=== PATIENT | female | born 1965 | race African-American/Black ===

== ENCOUNTER 2016-11-01 11:02 | Emergency (ER) | payer SELFPAY ==
[2016-11-01] MEDS ORDERED: Ondansetron ODT 4 MG TAB ONE (11:51)
[2016-11-01] MEDS ORDERED: Naproxen 500 MG TAB ONE (11:51)
[2016-11-01] MEDS ORDERED: HYDROcodone/Acetaminophen 10/325 mg Tablet ONE (12:34)
[2016-11-01] MEDS ORDERED: Diazepam 5 MG TAB ONE (12:34)
--- NOTE | 2016-11-01 13:18 | RAD ---
AP VIEW PELVIS: Date: 11/01/16 HISTORY: Pelvic pain. FINDINGS: AP view pelvis obtained. The pelvis is unremarkable. No evidence of pelvic fractures, subluxations, or bony lesions seen. IMPRESSION: Unremarkable AP view pelvis. POS: [facility]
--- NOTE | 2016-11-01 13:21 | RAD ---
3 VIEWS LUMBAR SPINE: Date: 11/01/16 HISTORY: Back pain for 1 week. FINDINGS: AP, lateral, and coned-down views lumbar spine obtained. Five non-rib bearing lumbar vertebra demons trate no evidence of lumbar spine fractures, subluxations, or bony lesions. IMPRESSION: Normal 3 views lumbar spine. POS: [facility]
== END 2016-11-01 12:35 | disposition home or self-care (01) ==
LOC: MADERS 11:02
DX: M54.42 Lumbago with sciatica, left side (principal); M54.41 Lumbago with sciatica, right side; I10 Essential (primary) hypertension; J45.909 Unspecified asthma, uncomplicated; Z79.899 Other long term (current) drug therapy
CPT/HCPCS: 72100; 72170; Q0162

== ENCOUNTER 2017-03-02 06:22 | Emergency (ER) | payer SELFPAY ==
[2017-03-02] MEDS ORDERED: Dexamethasone 10 MG/ML VIAL ONE (06:48)
[2017-03-02] MEDS ORDERED: diphenhydrAMINE 50 MG/ML VIAL ONE (07:00)
[2017-03-02 07:22] LABS: ALT (SGPT) 35 U/L (8-55); AST (SGOT) 37 U/L (5-34); Albumin 4.2 g/dL (3.5-5.0); Anion Gap 18 mmol/L (10-20); BUN (Urea Nitrogen) 13 mg/dL (7.0-18.7); Bilirubin, Total 0.2 mg/dL (0.2-1.2); Calc. Creatinine Clearance 0 mL/min (70-130); Calcium 9.5 mg/dL (7.8-10.44); Carbon Dioxide 23 mmol/L (22-29); Chloride 108 mmol/L (98-107); Estimated GFR-MDRD Greater than 90; Globulin 4.2 g/dL (2.4-3.5); Glucose 108 mg/dL (70-105); Potassium 3.9 mmol/L (3.5-5.1); Protein, Total 8.4 g/dL (6.0-8.3); Sodium 145 mmol/L (136-145)
[2017-03-02 07:27] LABS: CKMB 2.5 ng/mL (0-6.6); Troponin I Less than 0.010 ng/mL (< 0.028)
[2017-03-02 07:40] LABS: PTT 34.9 SEC (22.9-36.1); Prothrombin Time 12.9 SEC (12.0-14.7)
[2017-03-02 07:42] LABS: Hemoglobin 14.1 g/dL (12.0-16.0); Mean Corpuscular Volume 89.6 fL (81.0-99.0); Red Blood Cell (RBC) Count 4.82 mill/uL (4.20-5.40); White Blood Cell (WBC) Count 10.7 thou/uL (4.8-10.8)
[2017-03-02 07:43] LABS: Mean Corpuscular HGB CONC 32.7 g/dL (32.0-36.0); Mean Corpuscular Hemoglobin 29.3 pg (27.0-31.0)
[2017-03-02 07:44] LABS: #Basophils 0.3 thou/uL (0.0-0.2); #Eosinphils 0.1 thou/uL (0.0-0.7); #Lymphocytes 2.4 thou/uL (1.20-3.40); %Basophils 2.7 % (0.0-1.0); %Eosinophils 0.5 % (0.0-10.0); %Lymphocytes 22.1 % (21.0-51.0); %Monocytes 9.3 % (0.0-10.0); %Neutrophils 65.4 % (42.0-75.0); Mean Platelet Volume 8.2 fL (7.4-10.4); Platelet Count 278 thou/uL (130-400)
[2017-03-02] MEDS ORDERED: Lorazepam 2 MG/ML VIAL ONE (07:44)
[2017-03-02 07:45] LABS: Alkaline Phosphatase 74 U/L (40-150)
--- NOTE | 2017-03-02 08:03 | RAD ---
TWO VIEWS OF THE NECK: DATE: 03/02/17. COMPARISON: 08/20/12. HISTORY: Shortness of breath, dyspnea. FINDINGS: Frontal and lateral imaging of the neck demonstrates no significant mass effect on the tracheal air c olumn on frontal or lateral imaging. No radiopaque foreign body is seen. No prevertebral soft tissu e abnormality. IMPRESSION: No acute findings. POS: [facility]
== END 2017-03-02 08:25 | disposition short-term general hospital (02) ==
LOC: MADERS 06:22
DX: R05 Cough (principal); R06.02 Shortness of breath; R07.9 Chest pain, unspecified; I10 Essential (primary) hypertension; J45.909 Unspecified asthma, uncomplicated; Z79.899 Other long term (current) drug therapy
CPT/HCPCS: 70360; 71010; 80053; 82553; 83735; 83880; 84484; 85025; 85379; 85610; 85730; 96365; 96375; J1100; J1200; J1956; J2060

== ENCOUNTER 2017-12-14 09:07 | Emergency (ER) | payer SELFPAY ==
[~2017-12-14 09:07] MED LIST: Sodium Chloride 0.9% 1,000 ML BAG ONE
[2017-12-14] MEDS ORDERED: Ondansetron HCl/PF 4 MG/2 ML Vial ONE (09:32)
[2017-12-14 09:56] LABS: #Basophils 0.1 thou/uL (0.0-0.2); #Eosinphils 0.1 thou/uL (0.0-0.7); #Lymphocytes 1.5 thou/uL (1.20-3.40); #Monocytes 0.6 thou/uL (0.11-0.59); #Neutrophils 4.6 thou/uL (1.40-6.50); %Basophils 2.2 % (0.0-1.0); %Eosinophils 1.1 % (0.0-10.0); %Lymphocytes 21.5 % (21.0-51.0); %Monocytes 8.4 % (0.0-10.0); %Neutrophils 66.8 % (42.0-75.0); Hemoglobin 13.3 g/dL (12.0-16.0); Mean Corpuscular HGB CONC 32.8 g/dL (32.0-36.0); Mean Corpuscular Hemoglobin 28.4 pg (27.0-31.0); Mean Corpuscular Volume 86.3 fL (78.0-98.0); Mean Platelet Volume 7.8 fL (7.4-10.4); Platelet Count 313 thou/uL (130-400); RBC Distribution Width 11.5 % (11.5-14.5); Red Blood Cell (RBC) Count 4.71 mill/uL (4.20-5.40); White Blood Cell (WBC) Count 6.8 thou/uL (4.8-10.8)
[2017-12-14 10:10] LABS: ALT (SGPT) 32 U/L (8-55); AST (SGOT) 26 U/L (5-34); Albumin 4.4 g/dL (3.5-5.0); Alkaline Phosphatase 64 U/L (40-150); Anion Gap 14 mmol/L (10-20); BUN (Urea Nitrogen) 15 mg/dL (9.8-20.1); Bilirubin, Total 0.2 mg/dL (0.2-1.2); Calc. Creatinine Clearance 0 mL/min (70-130); Carbon Dioxide 24 mmol/L (22-29); Chloride 104 mmol/L (98-107); Estimated GFR-MDRD Greater than 90; Globulin 3.8 g/dL (2.4-3.5); Glucose 96 mg/dL (70-105); Lipase 24 U/L (8-78); Potassium 3.9 mmol/L (3.5-5.1); Protein, Total 8.2 g/dL (6.0-8.3); Sodium 138 mmol/L (136-145)
[2017-12-14 11:02] LABS: Bilirubin Negative (Negative); Blood, Urine Negative (Negative); Clarity Clear (Clear); Glucose, Urine (Dipstick) Negative (Negative); Leukocyte Negative (Negative); Nitrite Negative (Negative); Protein, Urine (Dipstick) Negative (Neg-Trace); Specific Gravity, Urine 1.008 (1.002-1.036); Urobilinogen 0.2 mg/dL (0.2-1.0)
== END 2017-12-14 11:23 | disposition home or self-care (01) ==
LOC: MADERS 09:07
DX: K52.9 Noninfective gastroenteritis and colitis, unspecified (principal); I10 Essential (primary) hypertension; J45.909 Unspecified asthma, uncomplicated; Z79.899 Other long term (current) drug therapy
CPT/HCPCS: 80053; 81003; 83690; 84484; 85025; 93005; 96374; J2405; J7050

== ENCOUNTER 2018-04-21 07:55 | Emergency (ER) | payer SELFPAY ==
[2018-04-21] MEDS ORDERED: Loperamide HCl 2 MG CAP ONE (09:20)
[2018-04-21] MEDS ORDERED: Sodium Chloride 0.9% 1,000 ML ONE (09:20)
[2018-04-21] MEDS ORDERED: Metoclopramide HCl 10 MG/2 ML VIAL ONE (09:20)
[2018-04-21] MEDS ORDERED: Ondansetron PF 4 MG/2 ML Vial ONE (09:20)
[2018-04-21 09:33] LABS: BHCG - Serum Negative (NEGATIVE); Pregs Control Background? CLEAR/WHITE (CLR/WHITE); Pregs Control Bar Appear? YES (CONTROL BAR)
[2018-04-21 09:42] LABS: ALT (SGPT) 39 U/L (8-55); AST (SGOT) 32 U/L (5-34); Albumin 4.5 g/dL (3.5-5.0); Alkaline Phosphatase 69 U/L (40-150); Anion Gap 15 mmol/L (10-20); BUN (Urea Nitrogen) 15 mg/dL (9.8-20.1); Bilirubin, Total 0.4 mg/dL (0.2-1.2); Calc. Creatinine Clearance 0 mL/min (70-130); Calcium 10.2 mg/dL (7.8-10.44); Carbon Dioxide 26 mmol/L (22-29); Chloride 103 mmol/L (98-107); Estimated GFR-MDRD Greater than 90; Globulin 3.9 g/dL (2.4-3.5); Glucose 99 mg/dL (70-105); Potassium 3.9 mmol/L (3.5-5.1); Protein, Total 8.4 g/dL (6.0-8.3); Sodium 140 mmol/L (136-145)
[2018-04-21 09:58] LABS: Hemoglobin 14.5 g/dL (12.0-16.0); Lymphocytes 14 % (21-51); MDiff Complete? YES; Mean Corpuscular Hemoglobin 27.1 pg (27.0-31.0); Mean Corpuscular Volume 87.3 fL (78.0-98.0); Mean Platelet Volume 7.8 fL (7.4-10.4); Monocytes 4 % (0-10); Neutrophil 82 % (42-75); Platelet Count 269 thou/uL (130-400); RBC Distribution Width 11.8 % (11.5-14.5); Red Blood Cell (RBC) Count 5.43 mill/uL (4.20-5.40); White Blood Cell (WBC) Count 7.9 thou/uL (4.8-10.8)
== END 2018-04-21 11:15 | disposition home or self-care (01) ==
LOC: MADERS 07:55
DX: R11.2 Nausea with vomiting, unspecified (principal); R19.7 Diarrhea, unspecified; I10 Essential (primary) hypertension; J45.909 Unspecified asthma, uncomplicated; Z79.899 Other long term (current) drug therapy; Z79.51 Long term (current) use of inhaled steroids
CPT/HCPCS: 80053; 84703; 85025; 96361; 96374; 96375; J2405; J2765; J7050

== ENCOUNTER 2019-11-10 05:53 | Emergency (ER) | payer SELFPAY ==
[2019-11-10] MEDS ORDERED: EPINEPHrine 1 MG/ML AMP ONE (05:59)
[2019-11-10] MEDS ORDERED: Ketamine 50 MG/ML (10ML VIAL) ONE (06:02)
[2019-11-10] MEDS ORDERED: Rocuronium Bromide 10 MG/ML (10ML VIAL) ONE ×2 (06:03→07:11)
[2019-11-10] MEDS ORDERED: Propofol 1,000 MG/100 ML VIAL IV ONE ×2 (06:35→06:36)
[2019-11-10 06:55] LABS: ALT (SGPT) 36 U/L (8-55); AST (SGOT) 33 U/L (5-34); Albumin 4.5 g/dL (3.5-5.0); Alkaline Phosphatase 74 U/L (40-110); Anion Gap 17 mmol/L (10-20); BUN (Urea Nitrogen) 13 mg/dL (9.8-20.1); Bilirubin, Total Less than 0.2 mg/dL (0.2-1.2); CK (CPK) 145 U/L (29-168); Calc. Creatinine Clearance 0 mL/min (70-130); Calcium 9.8 mg/dL (7.8-10.44); Carbon Dioxide 25 mmol/L (22-29); Chloride 103 mmol/L (98-107); Estimated GFR-MDRD 86; Globulin 3.9 g/dL (2.4-3.5); Glucose 102 mg/dL (70-105); Potassium 3.5 mmol/L (3.5-5.1); Protein, Total 8.4 g/dL (6.0-8.3); Sodium 141 mmol/L (136-145)
[2019-11-10] MEDS ORDERED: methylPREDNISolone Sod Succ/PF 125 MG/2 ML VIAL ONE (06:59)
[2019-11-10] MEDS ORDERED: Sodium Chloride 0.9% 1,000 ML ONE (06:59)
[2019-11-10 07:04] LABS: Band 1 % (5-11); Eosinophils 1 % (0-10); Hemoglobin 13.8 g/dL (12.0-16.0); Lymphocytes 33 % (21-51); MDiff Complete? YES; Mean Corpuscular HGB CONC 31.2 g/dL (32.0-36.0); Mean Corpuscular Volume 86.5 fL (78.0-98.0); Mean Platelet Volume 7.6 fL (7.4-10.4); Microcytosis SLIGHT = 6-15 cells (100X) (0-5/hpf); Monocytes 13 % (0-10); Neutrophil 48 % (42-75); Platelet Count 279 thou/uL (130-400); Platelet Morphology Comment Appears Adequate; Reactive Lymphocytes 3 % (0-10); Reflex for Review?? YES; White Blood Cell (WBC) Count 6.7 thou/uL (4.8-10.8)
--- NOTE | 2019-11-10 07:31 | RAD ---
RADIOGRAPH CHEST 1 VIEW: Supine DATE: 11/10/2019 HISTORY: 54-year-old female with respiratory distress. Status post intubation. FINDINGS: There is no airspace density or pulmonary edema. The lateral costophrenic angles are sharp. Supine po sitioning makes this study insensitive for the detection of pneumothorax. Endotracheal tube distal tip is at the cervicothoracic junction, C7-T1 level, 8 cm superior to the miguel. IMPRESSION: 1. Endotracheal tube at cervical thoracic junction. 2. No acute pulmonary findings.
== END 2019-11-10 07:19 | disposition short-term general hospital (02) ==
LOC: MADERS 05:53
DX: T78.3XXA Angioneurotic edema, initial encounter (principal); J96.90 Respiratory failure, unspecified, unspecified whether with hypoxia or hypercapnia; I10 Essential (primary) hypertension; J45.909 Unspecified asthma, uncomplicated
CPT/HCPCS: 31500; 36415; 51702; 71045; 80053; 82550; 85025; 96365; 96372; 96375; J0171; J2704; J2930; J7050

== ENCOUNTER 2020-06-14 10:26 | Outpatient (CLI) | payer BC | END 2020-06-14 10:27 | disposition home or self-care (01) | LOC: MADRAD 10:26 | PROVIDERS: ATTEND Family Medicine | DX: R07.89 Other chest pain (principal); Z86.16 Personal history of COVID-19 | CPT/HCPCS: 71046 ==

== ENCOUNTER 2020-07-05 15:32 | Emergency (ER) | payer BC ==
[2020-07-05 16:18] LABS: #Basophils 0.1 thou/uL (0.0-0.2); #Monocytes 0.5 thou/uL (0.11-0.59); #Neutrophils 3.3 thou/uL (1.40-6.50); %Basophils 1.4 % (0.0-1.0); %Eosinophils 0.4 % (0.0-10.0); %Lymphocytes 33.7 % (21.0-51.0); %Monocytes 7.9 % (0.0-10.0); %Neutrophils 56.6 % (42.0-75.0); Hemoglobin 13.4 g/dL (12.0-16.0); Mean Corpuscular Hemoglobin 27.6 pg (27.0-31.0); Mean Corpuscular Volume 86.3 fL (78.0-98.0); Mean Platelet Volume 8.9 fL (7.4-10.4); Platelet Count 257 thou/uL (130-400); Red Blood Cell (RBC) Count 4.84 mill/uL (4.20-5.40); White Blood Cell (WBC) Count 5.8 thou/uL (4.8-10.8)
[2020-07-05] MEDS ORDERED: Aspirin Chewable 81 MG TAB ONE (16:32)
[2020-07-05 16:39] LABS: ALT (SGPT) 22 U/L (8-55); AST (SGOT) 21 U/L (5-34); Albumin 4.2 g/dL (3.5-5.0); Alkaline Phosphatase 91 U/L (40-110); Anion Gap 15 mmol/L (10-20); BUN (Urea Nitrogen) 17 mg/dL (9.8-20.1); Bilirubin, Total 0.3 mg/dL (0.2-1.2); CK (CPK) 100 U/L (29-168); Calc. Creatinine Clearance 0 mL/min (70-130); Calcium 9.5 mg/dL (7.8-10.44); Carbon Dioxide 26 mmol/L (22-29); Chloride 105 mmol/L (98-107); Globulin 3.6 g/dL (2.4-3.5); Glucose 100 mg/dL (70-105); Potassium 3.8 mmol/L (3.5-5.1); Protein, Total 7.8 g/dL (6.0-8.3); Sodium 142 mmol/L (136-145)
[2020-07-05 16:45] LABS: CKMB 0.7 ng/mL (0-6.6)
[2020-07-05] MEDS ORDERED: Ondansetron PF 4 MG/2 ML Vial ONE (16:55)
[2020-07-05] MEDS ORDERED: Ketorolac Tromethamine 30 MG/ML VIAL ONE (16:55)
== END 2020-07-05 17:11 | disposition home or self-care (01) ==
LOC: MADERS 15:32
DX: R07.81 Pleurodynia (principal); J45.909 Unspecified asthma, uncomplicated; I10 Essential (primary) hypertension; Z79.899 Other long term (current) drug therapy
CPT/HCPCS: 71045; 80053; 82550; 82553; 84484; 85025; 85379; 93005; 94760; 96374; 96375; J1885; J2405

== ENCOUNTER 2020-07-16 10:16 | Outpatient (CLI) | payer BC ==
[2020-07-17 15:06] LABS: ANA Symphony (Qualitative) POSITIVE (Negative); ANA Symphony (Quantitative) 1.2 Ratio (< 0.7 Negative); CCP IgG Antibody 0.6 EliAU/mL (<7 Negative); CENP IgG Antibody 0.5 EliAU/mL (<7 Negative); EliA RAS New Method **** NEW METHOD ****; Jo-1 IgG Antibody Less than 0.3 EliAU/mL (<7 Negative); RNP70 IgG Antibody Less than 0.3 EliAU/mL (<7 Negative); Rheumatoid Factor IgA Antibody 1.6 IU/mL (<14 Negative); Rheumatoid Factor IgM Antibody 1.7 IU/mL (<3.5 Negative); SSA/Ro IgG Antibody 0.5 EliAU/mL (<7 Negative); SSB/La IgG Antibody Less than 0.3 EliAU/mL (<7 Negative); Scleroderma-70 IgG Antibody 0.7 EliAU/mL (<7 Negative); Smith D IgG Antibody 2.8 EliAU/mL (<7 Negative); dsDNA IgG Antibody 0.9 IU/mL (<10 Negative)
== END 2020-07-16 10:17 | disposition home or self-care (01) ==
LOC: MADLAB 10:16
PROVIDERS: ATTEND Family Medicine
DX: M25.561 Pain in right knee (principal)
CPT/HCPCS: 36415; 83520; 84550; 85652; 86038; 86200; 86225; 86235

== ENCOUNTER 2022-02-28 03:32 | Emergency (ER) | payer BC ==
[2022-02-28 05:12] LABS: #Basophils 0.1 thou/uL (0.0-0.2); #Eosinphils 0.1 thou/uL (0.0-0.7); #Lymphocytes 1.4 thou/uL (1.20-3.40); #Monocytes 0.4 thou/uL (0.11-0.59); #Neutrophils 5.2 thou/uL (1.40-6.50); %Eosinophils 1.2 % (0.0-10.0); %Lymphocytes 19.3 % (21.0-51.0); %Monocytes 5.9 % (0.0-10.0); %Neutrophils 71.6 % (42.0-75.0); Hemoglobin 13.6 g/dL (12.0-16.0); Mean Corpuscular HGB CONC 32.6 g/dL (32.0-36.0); Mean Corpuscular Hemoglobin 28.3 pg (27.0-31.0); Mean Corpuscular Volume 86.9 fl (78.0-98.0); Mean Platelet Volume 7.9 fL (7.4-10.4); Platelet Count 262 10x3/uL (130-400); RBC Distribution Width 11.3 % (11.5-14.5); Red Blood Cell (RBC) Count 4.79 mill/uL (4.20-5.40); White Blood Cell (WBC) Count 7.3 10x3/uL (4.8-10.8)
[2022-02-28 05:31] LABS: ALT (SGPT) 24 U/L (8-55); AST (SGOT) 22 U/L (5-34); Albumin 4.3 g/dL (3.5-5.0); Alkaline Phosphatase 69 U/L (40-110); Anion Gap 14 mmol/L (10-20); BUN (Urea Nitrogen) 14 mg/dL (9.8-20.1); Bilirubin, Total Less than 0.2 mg/dL (0.2-1.2); Calc. Creatinine Clearance 0 mL/min (70-130); Calcium 10.3 mg/dL (7.8-10.44); Carbon Dioxide 29 mmol/L (22-29); Chloride 103 mmol/L (98-107); Estimated GFR 94; Globulin 3.2 g/dL (2.4-3.5); Glucose 108 mg/dL (70-105); Potassium 3.6 mmol/L (3.5-5.1); Protein, Total 7.5 g/dL (6.0-8.3); Sodium 142 mmol/L (136-145)
[2022-02-28] MEDS ORDERED: Iopamidol 370 76% 100 ML VIAL ONE (08:42)
== END 2022-02-28 07:01 | disposition home or self-care (01) ==
LOC: MADERS 03:32
DX: J02.9 Acute pharyngitis, unspecified (principal); I10 Essential (primary) hypertension; J45.909 Unspecified asthma, uncomplicated; Z79.899 Other long term (current) drug therapy
CPT/HCPCS: 70491; 80053; 85025; 87081; 87430; 87804; Q9967

== ENCOUNTER 2022-04-29 10:13 | Outpatient (CLI) | payer MEDICARE, BC | END 2022-04-29 10:14 | disposition home or self-care (01) | LOC: MADRAD 10:13 | PROVIDERS: ATTEND Internal Medicine | DX: J45.41 Moderate persistent asthma with (acute) exacerbation (principal) | CPT/HCPCS: 71046 ==

== ENCOUNTER 2022-05-05 09:15 | Outpatient (CLI) | payer BC, MEDICARE | END 2022-05-05 09:16 | disposition home or self-care (01) | LOC: MADRAD 09:15 | PROVIDERS: ATTEND Internal Medicine | DX: J32.9 Chronic sinusitis, unspecified (principal) | CPT/HCPCS: 70220 ==

== ENCOUNTER 2022-06-11 09:04 | Outpatient (CLI) | payer BC, MEDICARE | END 2022-06-11 09:05 | disposition home or self-care (01) | LOC: MADRAD 09:04 | PROVIDERS: ATTEND Internal Medicine | DX: J45.41 Moderate persistent asthma with (acute) exacerbation (principal) | CPT/HCPCS: 70220; 71046 ==

== ENCOUNTER 2022-12-04 08:35 | Emergency (ER) | payer MEDICARE, MEDICAID ==
[2022-12-04] MEDS ORDERED: Ipratropium/Albuterol 3 ML NEB ONE (08:54)
[2022-12-04] MEDS ORDERED: Aspirin Chewable 81 MG TAB ONE (08:54)
[2022-12-04] MEDS ORDERED: Nitroglycerin 0.4 MG TAB 1 EACH ONE (09:08)
[2022-12-04] MEDS ORDERED: methylPREDNISolone Sod Succ/PF 125 MG/2 ML VIAL ONE (09:08)
[2022-12-04 09:20] LABS: #Basophils 0.1 thou/uL (0.0-0.2); #Lymphocytes 2.1 thou/uL (1.20-3.40); #Monocytes 0.6 thou/uL (0.11-0.59); #Neutrophils 4.1 thou/uL (1.40-6.50); %Basophils 2.1 % (0.0-1.0); %Eosinophils 0.6 % (0.0-10.0); %Lymphocytes 29.8 % (21.0-51.0); %Monocytes 8.2 % (0.0-10.0); %Neutrophils 59.2 % (42.0-75.0); Hematocrit 41.7 % (36.0-47.0); Hemoglobin 12.9 g/dL (12.0-16.0); Mean Corpuscular HGB CONC 30.9 g/dL (32.0-36.0); Mean Corpuscular Hemoglobin 27.7 pg (27.0-31.0); Mean Corpuscular Volume 89.4 fl (78.0-98.0); Mean Platelet Volume 8.5 fL (7.4-10.4); Platelet Count 257 10x3/uL (130-400); RBC Distribution Width 13.3 % (11.5-14.5); Red Blood Cell (RBC) Count 4.66 mill/uL (4.20-5.40); White Blood Cell (WBC) Count 6.9 10x3/uL (4.8-10.8)
[2022-12-04 09:33] LABS: ALT (SGPT) 27 U/L (8-55); AST (SGOT) 18 U/L (5-34); Albumin 4.1 g/dL (3.5-5.0); Alkaline Phosphatase 64 U/L (40-110); Anion Gap 12 mmol/L (10-20); BUN (Urea Nitrogen) 20 mg/dL (9.8-20.1); Bilirubin, Total 0.3 mg/dL (0.2-1.2); Calc. Creatinine Clearance 0 mL/min (70-130); Calcium 9.6 mg/dL (7.8-10.44); Carbon Dioxide 29 mmol/L (22-29); Chloride 106 mmol/L (98-107); Estimated GFR 86; Globulin 3.2 g/dL (2.4-3.5); Glucose 101 mg/dL (70-105); Lipase 18 U/L (8-78); Potassium 3.8 mmol/L (3.5-5.1); Protein, Total 7.3 g/dL (6.0-8.3); Sodium 143 mmol/L (136-145)
[2022-12-04 09:42] LABS: Troponin I Less than 0.010 ng/mL (< 0.028)
[2022-12-04] MEDS ORDERED: Nitroglycerin 2% Ointment 1 INCH/1 GM Packet ONE (12:10)
[2022-12-04 13:05] LABS: Troponin I Less than 0.010 ng/mL (< 0.028)
== END 2022-12-04 14:18 | disposition short-term general hospital (02) ==
LOC: MADERS 08:35
DX: R07.89 Other chest pain (principal); I10 Essential (primary) hypertension; J45.909 Unspecified asthma, uncomplicated; Z79.899 Other long term (current) drug therapy
CPT/HCPCS: 36415; 71046; 80053; 83690; 84484; 85025; 85379; 93005; 94760; 96374; J2930; J7620

== ENCOUNTER 2024-12-13 06:53 | Outpatient (CLI) | payer OTHER, MEDICAID | END 2024-12-13 06:54 | disposition home or self-care (01) | LOC: MADRAD 06:53 | PROVIDERS: ATTEND Family Medicine | DX: M25.512 Pain in left shoulder (principal) ==

== ENCOUNTER 2025-03-11 16:36 | Emergency (ER) | payer OTHER, MEDICAID ==
[2025-03-11] MEDS ORDERED: Acetaminophen 500 MG TAB ONE (17:28)
== END 2025-03-11 18:43 | disposition home or self-care (01) ==
LOC: MADERS 16:36
DX: B34.9 Viral infection, unspecified (principal); I10 Essential (primary) hypertension; K21.9 Gastro-esophageal reflux disease without esophagitis; E78.5 Hyperlipidemia, unspecified; E11.42 Type 2 diabetes mellitus with diabetic polyneuropathy; J45.909 Unspecified asthma, uncomplicated; Z79.51 Long term (current) use of inhaled steroids; Z79.899 Other long term (current) drug therapy; Z79.82 Long term (current) use of aspirin
CPT/HCPCS: 71046